=== PATIENT | female | born 1995 | race American Indian/Alaskan Native ===

== ENCOUNTER 2019-05-22 22:50 | Emergency (ER) | payer OTHER ==
[2019-05-23 00:04] LABS: Basophils % (Auto) 0.5 % (0.0-1.8); Eosinophils # (Auto) 0.2 K/mm3 (0.0-0.4); Eosinophils % (Auto) 3.8 % (0.0-4.3); Hematocrit 38.3 % (30.3-42.9); Hemoglobin 12.9 gm/dl (10.1-14.3); Lymphocytes # (Auto) 2.3 K/mm3 (1.2-5.4); Lymphocytes % (Auto) 35.5 % (13.4-35.0); Mean Corpuscular HGB Conc 34 % (30-34); Mean Corpuscular Hemoglobin 26 pg (28-32); Mean Corpuscular Volume 78 fl (79-97); Monocytes % (Auto) 15.4 % (0.0-7.3); Platelet Count 410 K/mm3 (140-440); Red Blood Count 4.91 M/mm3 (3.65-5.03)
[2019-05-23 00:16] LABS: BUN/Creatinine Ratio 11; Blood Urea Nitrogen 8 mg/dL (7-17); Calcium 9.7 mg/dL (8.4-10.2); Hemolysis Index 2
--- NOTE | 2019-05-23 00:28 | Emergency Department Report ---
ED Abdominal Pain HPI - General Chief Complaint: Dizziness Stated Complaint: CHEST PAIN/NOSE BLEEDS/DIZZINESS/ABDOMINAL PAIN Time Seen by Provider: 05/23/19 00:18 Source: patient Mode of arrival: Ambulatory Limitations: No Limitations - History of Present Illness Initial Comments: Patient is 23 years old female with history of asthma. Patient presented to the ER complaining of dizziness, left flank pain that started 5 days ago with no radiation. Patient stated that her pain is completely resolved now that she is nauseated. She also stated that she noticed dysuria especially at the end of the urination. That she denied any hematuria. Patient denied any vaginal discharge. Patient stated that she is on her period now. Patient denied any fever or chills. MD Complaint: flank pain -: days(s) (5) Location: L flank Radiation: none Migration to: no migration Severity: mild Quality: sharp - Related Data Allergies Allergy/AdvReac Type Severity Reaction Status Date / Time No Known Allergies Allergy Unverified 05/22/19 23:29 ED Review of Systems ROS: Stated complaint: CHEST PAIN/NOSE BLEEDS/DIZZINESS/ABDOMINAL PAIN Other details as noted in HPI Comment: All other systems reviewed and negative Constitutional: denies: chills, fever ENT: congestion Respiratory: cough. denies: orthopnea, shortness of breath, SOB with exertion, SOB at rest, wheezing Cardiovascular: denies: chest pain, palpitations Gastrointestinal: nausea. denies: abdominal pain, vomiting, diarrhea, constipation, hematemesis, melena, hematochezia Genitourinary: urgency, dysuria, frequency. denies: hematuria, discharge Musculoskeletal: denies: back pain Neurological: denies: headache, weakness, numbness, paresthesias, confusion, abnormal gait ED Past Medical Hx - Past Medical History Previous Medical History?: No - Surgical History Past Surgical History?: No - Social History Smoking Status: Never Smoker Substance Use Type: None ED Physical Exam - General Limitations: No Limitations General appearance: alert, in no apparent distress - Head Head exam: Present: atraumatic, normocephalic, normal inspection - Eye Eye exam: Present: normal appearance, PERRL - ENT ENT exam: Present: normal exam, normal orophraynx, mucous membranes moist - Neck Neck exam: Present: normal inspection, full ROM. Absent: tenderness, meningismus, lymphadenopathy, thyromegaly - Respiratory Respiratory exam: Present: normal lung sounds bilaterally - Cardiovascular Cardiovascular Exam: Present: regular rate, normal rhythm, normal heart sounds - GI/Abdominal GI/Abdominal exam: Present: soft, normal bowel sounds. Absent: distended, tenderness, guarding, rebound, rigid, organomegaly, mass, bruit, pulsatile mass, hernia - Extremities Exam Extremities exam: Present: normal inspection, full ROM, normal capillary refill - Back Exam Back exam: Present: normal inspection, full ROM. Absent: CVA tenderness (R), CVA tenderness (L) - Neurological Exam Neurological exam: Present: alert, oriented X3, CN II-XII intact, normal gait, reflexes normal - Psychiatric Psychiatric exam: Present: normal mood - Skin Skin exam: Present: warm, intact, normal color ED Course Vital Signs 05/22/19 23:24 Temperature 98.7 F Pulse Rate 107 H Respiratory 18 Rate Blood Pressure 108/72 O2 Sat by Pulse 96 Oximetry ED Medical Decision Making - Lab Data Result diagrams: 05/22/19 23:34 05/22/19 23:34 Critical care attestation.: If time is entered above; I have spent that time in minutes in the direct care of this critically ill patient, excluding procedure time. ED Disposition Clinical Impression: UTI (urinary tract infection), Acute bronchitis Disposition: - TO HOME OR SELFCARE Is pt being admited?: No Condition: Stable Instructions: Acute Bronchitis (ED), Urinary Tract Infection in Women (ED) Referrals: [facility] [Provider Group] - 3-5 Days
[2019-05-23 01:44] LABS: Bilirubin,Urine NEG (Negative); Blood,Urine LG (Negative); Color,Urine Yellow (Yellow); Mucus,Urine FEW /HPF; Urobilinogen,Urine < 2.0 mg/dL (<2.0)
[2019-05-23 01:45] LABS: RBC,Urine > 182.0 /HPF (0.0-6.0)
[2019-05-23 02:50] VITALS: BP 111/66
== END 2019-05-23 02:20 | disposition home or self-care (01) ==
LOC: ED 22:50
CPT/HCPCS: 36415; 80048; 81001; 84703; 85025; 93005; 93010

== ENCOUNTER 2019-11-04 21:30 | Emergency (ER) | payer OTHER ==
[2019-11-05 00:29] VITALS: BP 107/73
[2019-11-05] MEDS ORDERED: ONDANSETRON 4 MG ODT TAB ONE (01:01)
[2019-11-05] MEDS ORDERED: ONDANSETRON 4 MG ODT TAB PO ONE (01:09)
[2019-11-05 02:28] LABS: Basophils % (Auto) 0.4 % (0.0-1.8); Eosinophils % (Auto) 0.2 % (0.0-4.3); Hematocrit 41.5 % (30.3-42.9); Hemoglobin 13.9 gm/dl (10.1-14.3); Lymphocytes % (Auto) 29.2 % (13.4-35.0); Mean Corpuscular HGB Conc 34 % (30-34); Mean Corpuscular Volume 82 fl (79-97); Monocytes # (Auto) 0.6 K/mm3 (0.0-0.8); Monocytes % (Auto) 9.2 % (0.0-7.3); Platelet Count 363 K/mm3 (140-440); Red Blood Count 5.06 M/mm3 (3.65-5.03); Red Cell Distribution Width 14.3 % (13.2-15.2)
[2019-11-05 02:40] LABS: BUN/Creatinine Ratio 16; Blood Urea Nitrogen 8 mg/dL (7-17); Calcium 10.1 mg/dL (8.4-10.2); Hemolysis Index 17
[2019-11-05] MEDS ORDERED: SODIUM CHLORIDE 0.9% 1000 ML 1,000 ML IV ONE (04:08)
[2019-11-05] MEDS ORDERED: METOCLOPRAMIDE 10 MG/2 ML INJ IV STA (04:08)
[2019-11-05] MEDS ORDERED: diphenhydrAMINE 50 MG/ML VIAL IV STA (04:08)
[2019-11-05] MEDS ORDERED: PYRIDOXINE 50 MG TAB PO SCH (04:08)
--- NOTE | 2019-11-05 04:18 | Emergency Department Report ---
ED General Adult HPI - General Chief complaint: Nausea/Vomiting/Diarrhea Stated complaint: 8 WEEKS , VOMITING BLOOD Time Seen by Provider: 11/05/19 04:08 Source: patient Mode of arrival: Ambulatory Limitations: No Limitations - History of Present Illness Initial comments: 24-year-old 8 weeks female to emergency Department complaining of 3 or 4 weeks of nausea and vomiting with minimal food intake. Reports no chest pain or shortness of breath headache or dizziness does get a little bit of heat times with the vomiting and nausea symptoms. States that she has noticed a few streaks of blood in her INR vomiting. Radiation: non-radiation Quality: aching, dull Consistency: constant Worsens with: none Associated Symptoms: denies: diaphoresis, fever/chills Treatments Prior to Arrival: none - Related Data Previous Rx's Medication Instructions Recorded Last Taken Type Ciprofloxacin HCl [Ciprofloxacin 500 mg PO Q12HR #14 tab 05/23/19 Unknown Rx TAB] guaiFENesin [Robitussin] 5 ml PO TID PRN #100 ml 05/23/19 Unknown Rx Doxylamine Succinate/Vit B6 1 each PO TID #30 tablet. 11/05/19 Unknown Rx [Nae Conway 10-10 mg Tablet] Metoclopramide [Reglan] 10 mg PO TID #20 tab 11/05/19 Unknown Rx Allergies Allergy/AdvReac Type Severity Reaction Status Date / Time No Known Allergies Allergy Unverified 05/22/19 23:29 ED Review of Systems ROS: Stated complaint: 8 WEEKS , VOMITING BLOOD Other details as noted in HPI Comment: All other systems reviewed and negative ED Past Medical Hx - Past Medical History Previous Medical History?: Yes Hx Asthma: Yes - Surgical History Past Surgical History?: No - Social History Smoking Status: Never Smoker Substance Use Type: None - Medications Home Medications: Home Medications Medication Instructions Recorded Confirmed Last Taken Type Ciprofloxacin HCl [Ciprofloxacin 500 mg PO Q12HR #14 tab 05/23/19 Unknown Rx TAB] guaiFENesin [Robitussin] 5 ml PO TID PRN #100 ml 05/23/19 Unknown Rx Doxylamine Succinate/Vit B6 1 each PO TID #30 tablet. 11/05/19 Unknown Rx [Nae Conway 10-10 mg Tablet] Metoclopramide [Reglan] 10 mg PO TID #20 tab 11/05/19 Unknown Rx ED Physical Exam - General Limitations: No Limitations General appearance: alert, in no apparent distress - Head Head exam: Present: atraumatic, normocephalic - Eye Eye exam: Present: normal appearance - ENT ENT exam: Present: mucous membranes moist - Neck Neck exam: Present: normal inspection - Respiratory Respiratory exam: Present: normal lung sounds bilaterally. Absent: respiratory distress - Cardiovascular Cardiovascular Exam: Present: regular rate, normal rhythm. Absent: systolic murmur, diastolic murmur, rubs, gallop - GI/Abdominal GI/Abdominal exam: Present: soft, normal bowel sounds - Extremities Exam Extremities exam: Present: normal inspection - Back Exam Back exam: Present: normal inspection - Neurological Exam Neurological exam: Present: alert, oriented X3 - Psychiatric Psychiatric exam: Present: normal affect, normal mood - Skin Skin exam: Present: warm, dry, intact, normal color. Absent: rash ED Course Vital Signs 11/05/19 00:14 Temperature 98.4 F Pulse Rate 101 H Respiratory 18 Rate Blood Pressure 107/73 O2 Sat by Pulse 99 Oximetry ED Medical Decision Making - Lab Data Result diagrams: 11/05/19 01:47 11/05/19 01:47 - Radiology Data Radiology results: report reviewed [facility] [address] [place] [address] Ultrasound Report Signed Patient: DINORAH QUIÑONES R#: [id number] : 1995 Acct:[id number] Age/Sex: 24 / F ADM Date: 11/04/19 Loc: ED Attending Dr: Ordering Physician: LEÓN JIMENEZ MD Date of Service: 11/05/19 Procedure(s): US OB transvaginal Accession Number(s): [id number] cc: LEÓN JIMENEZ MD US OB <= 14 weeks fetus, US OB transvaginal INDICATION / CLINICAL INFORMATION: abdominal pain. COMPARISON: None available. FINDINGS: Single, viable intrauterine . Heart rate 156. [place]-rump length measures 10.9 mm, corresponding to a gestational age of 7 weeks 1 day. Moderate-sized (4 cm maximum diameter) subchorionic hemorrhage is demonstrated adjacent to the thecal sac. Left ovary is normal. Right ovary cannot be identified. No free fluid. IMPRESSION: 1. Viable 7 week 1 day intrauterine . 2. 4 cm subchorionic hemorrhage. Signer Name: Guanakito Solano MD Signed: 11/05/2019 4:42 AM Workstation Name: [id number] Transcribed By: TM Dictated By: Guanakito Solano MD Electronically Authenticated By: Guanakito Solano MD Signed Date/Time: 11/05/19441 DD/ 6 TD/TT: - Medical Decision Making 21-year-old female of chest medicine department complaining of what appears to be hyperemesis very likely related. No infectious processes were found it to this hospital today. She was treated w ith the appropriate medications and states that her symptoms 100% resolved. Please is able to tolerate eating ice chips with no complications. Reports no current fevers, chills, sweats no no abdominal pain no nausea or vomiting at current. Given History and Exam there does not appear to be an emergent cause of the symptoms such as small bowel obstruction, coronary syndrome, bowel ischemia, DKA, pancreatitis, appendicitis, other acute abdomen or other emergent problem. Reassessment: After treatment, the patient is feeling much better, tolerating PO fluids, and shows no signs of dehydration. Disposition: Discharge home with prompt primary care physician follow up in the next 48 hours. Strict return precautions discussed. Critical care attestation.: If time is entered above; I have spent that time in minutes in the direct care of this critically ill patient, excluding procedure time. ED Disposition Clinical Impression: Hyperemesis affecting , antepartum Disposition: DC-01 TO HOME OR SELFCARE Is pt being admited?: No Does the pt Need Aspirin: No Condition: Stable Instructions: Hyperemesis Gravidarum (ED) Prescriptions: Doxylamine Succinate/Vit B6 [Nae Conway 10-10 mg Tablet] 1 each PO TID #30 tablet. Metoclopramide [Reglan] 10 mg PO TID #20 tab Referrals: [facility] [Provider Group] - 3-5 Days
--- NOTE | 2019-11-05 04:46 | Ultrasound Report ---
US OB <= 14 weeks fetus, US OB transvaginal INDICATION / CLINICAL INFORMATION: abdominal pain. COMPARISON: None available. FINDINGS: Single, viable intrauterine . Heart rate 156. [place]-rump length measures 10.9 mm, corresponding to a gestational age of 7 weeks 1 day. Moderate-sized (4 cm maximum diameter) subchorionic hemorrhage is demonstrated adjacent to the thecal sac. Left ovary is normal. Right ovary cannot be identified. No free fluid. IMPRESSION: 1. Viable 7 week 1 day intrauterine . 2. 4 cm subchorionic hemorrhage. Signer Name: Guanakito Solano MD Signed: 11/05/2019 4:42 AM Workstation Name: [id number]
== END 2019-11-05 06:54 | disposition home or self-care (01) ==
LOC: ED 21:30
DX: O21.0 Mild hyperemesis gravidarum (principal); Z87.09 Personal history of other diseases of the respiratory system; Z79.899 Other long term (current) drug therapy; Z3A.01 Less than 8 weeks gestation of pregnancy
CPT/HCPCS: 36415; 76801; 76817; 80048; 84702; 85025; 96361; 96374; 96375; 99284; J1200; J2765; J7030; 94640; Q0162